=== PATIENT | male | born 1980 | race Caucasian/White ===

== ENCOUNTER 2017-10-13 15:42 | Emergency (ER) | payer BC ==
[~2017-10-13] VITALS: Ht 177.8 cm; Wt 71.8 kg
[2017-10-13 15:43] VITALS: TEMP 36.7; Ht 177.8 cm; Wt 71.8 kg
--- NOTE | 2017-10-13 16:42 | EMERGENCY ROOM VISIT NOTE ---
History First contact with patient: 15:49 Chief Complaint: CALF PAIN Stated Complaint: KNEE CALF PAIN History of Present Illness The patient is a 37 year old male who presents to the Emergency Room with complaints of pain in his left knee and calf. The patient reports that he has had pain in the left knee on and off for the past 1 year. 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 His knee pain typically improves with rest but has been recurrent over the past year. The patient states that over the past 2-3 weeks, he has developed a cramping sensation in his left calf. He states that it feels like there is a knot in the back of the calf and rates the discomfort an 8/10. He states that over the past 3 days, it has become difficult for him to get around due to the pain. The pain does improve when he rests and elevates his leg. He states that he was seen at the family practice office at [facility] in [place] yesterday and was told that something ruptured in his calf. He reports that they are scheduling an MRI, but it has not been scheduled yet. He is not a smoker and denies any foreign travel. He denies chest pain or shortness of breath. He denies numbness or weakness of the leg. Review of Systems A complete 6 point review of systems was reviewed with the patient with pertinent positives and negatives as per history of present illness. All else were negative. Past Medical/Surgical History Medical Problems: (1) No significant active problems Family History Patient reports no known family medical history. Social History Smoking Status: Never Smoker Alcohol Use: occasionally Drug Use: none Marital Status: in relationship Current/Historical Medications Scheduled Amphetamine-Dextroamphetamine 10MG (Adderall 10MG), 10 MG PO DAILY Amphetamine-Dextroamphetamine 20MG (Adderall Xr 20MG), 20 MG PO DAILY Scheduled PRN Acetaminophen (Tylenol), 1,000 MG PO DAILY PRN for Pain Physical Exam Vital Signs Date Time Temp Pulse Resp B/P (MAP) Pulse Ox O2 Delivery O2 Flow Rate FiO2 10/13/17 16:58 72 20 127/78 99 10/13/17 15:43 36.7 62 17 132/89 100 Room Air Physical Exam VITALS: Vitals are noted on the nurse's note and reviewed by myself. Vital signs stable. GENERAL: This is a 37-year-old male, in no acute distress, nondiaphoretic, well- developed well-nourished. HEART: Regular rate and rhythm without murmurs gallops or rubs. LUNGS: Clear to auscultation bilaterally without wheezes, rales or rhonchi. MUSCULOSKELETAL: There is tenderness to palpation of the proximal left calf, particularly over the medial portion of the leg. There is no warmth, erythema or palpable cord. Full range of motion of the knee and ankle. Dorsalis pedis pulse 2+. NEURO: Patient was alert and oriented to person place and time. Normal sensation in the left lower extremity. Medical Decision & Procedures Medical Decision Differential diagnosis includes muscle strain, DVT, superficial thrombosis, hematoma, compartment syndrome, among others. The patient was evaluated as above. Case management was able to obtain the patient's records from his visit with the [facility] office. I reviewed these records, which show that the patient was found to have a hematoma of the medial left calf measuring 6 x 2 x 3 cm. I certainly do not feel the patient needs an emergent MRI, and he may not require any further testing at all. I recommended close follow-up with orthopedics and gave the patient information for [facility], who have a walk-in clinic this evening. I recommended that the patient go directly there for further evaluation and treatment. He was given an Rod wrap and crutches. Conservative measures were discussed. He verbalized understanding of my assessment and treatment plan and was discharged home in good condition. Medication Reconcilliation Current Medication List: was personally reviewed by me Blood Pressure Screening Patient's blood pressure: Normal blood pressure Impression Primary Impression: Hematoma of left lower extremity Departure Information Dispostion Home / Self-Care Condition GOOD Referrals Zack Braun M.D. (PCP) Luis Amaro D.O. Patient Instructions My [facility] Additional Instructions You have been treated in the Emergency Department for Calf Pain. Your ultrasound showed a hematoma. For pain control, you can use the following [id number] medicines (if >12 yo): - Regular strength (325mg/tab) Tylenol (acetaminophen) 2 tabs every 4-6 hours as needed. Do not exceed 12 tablets in a 24 hour period. Avoid taking more than 4 grams (4000 mg) of Tylenol per day. This includes any other sources of acetaminophen you may take on a regular basis. Use a warm compress over the area several times per day. Wear the Rod wrap and use the crutches to keep weight off of the leg until your pain has subsided. You should follow-up with [facility] for further evaluation. They have a walk-in clinic tonight from 5 PM to 8 PM. Return to the Emergency Department if your current symptoms worsen despite treatment course outlined above. Problem Qualifiers Primary Impression: Hematoma of left lower extremity Encounter type: initial encounter Qualified Codes: S80.12XA - Contusion of left lower leg, initial encounter
[2017-10-13] MEDS ORDERED: AMPH20CA3 PO (16:49)
[2017-10-13] MEDS ORDERED: ACET-1256 PO (16:49)
[2017-10-13] MEDS ORDERED: AMPH10TA2 PO (16:49)
[2017-10-13 16:58] VITALS: BP 127/78; PULSE 72; O2SAT 99
== END 2017-10-13 17:02 | disposition home or self-care (01) ==
LOC: C.EDB 15:43 → C.EDD 17:02
DX: S80.12XA Contusion of left lower leg, initial encounter (principal); X58.XXXA Exposure to other specified factors, initial encounter